=== PATIENT | female | born 1985 | race American Indian/Alaskan Native ===

== ENCOUNTER 2019-07-09 07:51 | Outpatient (CLI) | payer OTHER | END 2019-07-09 08:56 | disposition home or self-care (01) | LOC: NST 07:51 | DX: Z34.82 Encounter for supervision of other normal pregnancy, second trimester (principal) ==

== ENCOUNTER 2019-07-24 09:48 | Outpatient (CLI) | payer OTHER | END 2019-07-24 13:02 | disposition home or self-care (01) | LOC: NST 09:48 | DX: O10.013 Pre-existing essential hypertension complicating pregnancy, third trimester (principal) ==

== ENCOUNTER 2019-08-08 07:56 | Outpatient (CLI) | payer OTHER | END 2019-08-08 08:39 | disposition home or self-care (01) | LOC: NST 07:56 | DX: Z34.83 Encounter for supervision of other normal pregnancy, third trimester (principal) ==

== ENCOUNTER 2019-09-05 12:27 | Outpatient (CLI) | payer OTHER | END 2019-09-05 13:03 | disposition home or self-care (01) | LOC: NST 12:27 | DX: Z34.83 Encounter for supervision of other normal pregnancy, third trimester (principal) ==

== ENCOUNTER 2019-09-05 13:17 | Inpatient (IN) | payer OTHER ==
[~2019-09-05] VITALS: Ht 160 cm; Wt 3.2 kg
[2019-09-15] MEDS ORDERED: LABETALOL HCL100 MG PO (13:15)
[2019-09-15] MEDS ORDERED: VALTREX1000 MG PO (13:16)
[2019-09-15] MEDS ORDERED: SYNTHROID112 MCG PO (13:16)
[2019-09-16] MEDS ORDERED: ASPIR 8181 MG PO (15:51)
[2019-09-16] MEDS ORDERED: PRENATAL + DHA1 EAC1 PO (15:52)
== END 2019-09-20 12:36 | disposition home or self-care (01) | DRG 787 ==
LOC: LDR 09-15 12:29 → O/R 09-16 15:50 → OB/GYN 09-16 16:38
PROVIDERS: ADMIT Obstetrics & Gynecology; ATTEND Obstetrics & Gynecology
PROC: 3E0P7VZ Introduction of Hormone into Female Reproductive, Via Natural or Artificial Opening (ICD-10-PCS; 2019-09-16)
PROC: 4A1HXFZ Monitoring of Products of Conception, Cardiac Rhythm, External Approach (ICD-10-PCS; 2019-09-16)
PROC: 10D00Z1 Extraction of Products of Conception, Low, Open Approach (ICD-10-PCS; principal; 2019-09-16 15:00)
DX: O61.0 Failed medical induction of labor (principal); O10.92 Unspecified pre-existing hypertension complicating childbirth; O99.824 Streptococcus B carrier state complicating childbirth; O76 Abnormality in fetal heart rate and rhythm complicating labor and delivery; O69.81X0 Labor and delivery complicated by cord around neck, without compression, not applicable or unspecified; O99.284 Endocrine, nutritional and metabolic diseases complicating childbirth; Z3A.38 38 weeks gestation of pregnancy; Z37.0 Single live birth

== ENCOUNTER 2019-09-12 14:11 | Outpatient (CLI) | payer OTHER | END 2019-09-12 16:33 | disposition home or self-care (01) | LOC: NST 14:11 | PROVIDERS: ATTEND Obstetrics & Gynecology | DX: Z34.83 Encounter for supervision of other normal pregnancy, third trimester (principal) ==

== ENCOUNTER 2019-09-15 11:24 | Outpatient (CLI) | payer OTHER ==
[2019-09-15] MEDS ORDERED: LABETALOL HCL100 MG PO (13:15)
[2019-09-15] MEDS ORDERED: VALTREX1000 MG PO (13:16)
[2019-09-15] MEDS ORDERED: SYNTHROID112 MCG PO (13:16)
[2019-09-16] MEDS ORDERED: ASPIR 8181 MG PO (15:51)
[2019-09-16] MEDS ORDERED: PRENATAL + DHA1 EAC1 PO (15:52)
== END 2019-09-15 13:09 | disposition still patient (30) ==
LOC: NST 11:24
PROVIDERS: ATTEND Obstetrics & Gynecology
DX: Z34.83 Encounter for supervision of other normal pregnancy, third trimester (principal)

== ENCOUNTER 2024-12-16 14:28 | Outpatient (CLI) | payer OTHER ==
[~2024-12-16 14:28] MED LIST: ASPIR 8181 MG PO; LABETALOL HCL100 MG PO; PRENATAL + DHA1 EAC1 PO; SYNTHROID112 MCG PO; VALTREX1000 MG PO
== END 2024-12-16 15:52 | disposition home or self-care (01) ==
LOC: NST 14:28
PROVIDERS: ATTEND Obstetrics & Gynecology
DX: Z34.83 Encounter for supervision of other normal pregnancy, third trimester (principal)

== ENCOUNTER 2024-12-22 07:30 | Inpatient (IN) | payer OTHER ==
[~2024-12-22] VITALS: Ht 160 cm; Wt 3.2 kg
[2024-12-22] MEDS ORDERED: NIFEDIPINE ER30 MG PO (08:54)
[2024-12-22 09:28] LABS: BASO % 0.3 % (0.1-1.2); EOS # 0.06 (0.04-0.54); EOS % 0.6 % (0.7-7.0); LYMPH # 1.66 (1.18-3.74); LYMPH % 17.0 % (19.3-53.1); MEAN PLATELET VOLUME 10.00 fl (9.4-12.4); MONO # 0.64 (0.24-0.82); MONO % 6.6 % (4.7-12.5); NEUT # 7.24 (1.56-6.13); NEUT % 74.2 % (34.0-71.1); RED CELL DISTRIBUTION WIDTH 14.0 % (11.6-14.4)
[2024-12-22 10:06] LABS: INR 0.96
[2024-12-22 10:08] LABS: ALT/SGPT 26.0 U/L (12-78); AST/SGOT 16.0 U/L (15-37); BILIRUBIN TOTAL 0.3 mg/dL (0.3-1.2); BUN CREA RATIO 16.0 (7.0-25.0); CREATININE SERUM 0.49 mg/dL (0.55-1.02); GFR 140.6; GLOBULINA 4.0 G/DL (2.4-3.5); GLUCOSE FASTING 81.0 mg/dL (65-100); OSMOLALITY SERUM 277.0 MOSM/KG (275-295)
[2024-12-24 09:28] VITALS: BP 146/78
[2024-12-24] MEDS ORDERED: ERYTHROMYCIN BASE OPHT 1GM EACH TUBE OP ONE (10:01)
[2024-12-24] MEDS ORDERED: OXYTOCIN 10 UNITS/ML VIAL ONE ×2 (10:01→15:51)
[2024-12-24] MEDS ORDERED: CEFAZOLIN SODIUM 1,000 MG VIAL ONE (10:30)
[2024-12-24] MEDS ORDERED: CITRIC ACID/SODIUM CITRATE 30 ML BLIST.PACK PO ONE (10:30)
[2024-12-24] MEDS ORDERED: CHLORHEXIDINE GLUCONATE 120 ML BOTTLE TOP ONE (12:08)
[2024-12-24] MEDS ORDERED: MORPHINE SULFATE 4 MG/ML VIAL IV ONE (12:50)
[2024-12-24] MEDS ORDERED: LABETALOL HCL 200 MG TABLET PO SCH (13:05)
[2024-12-24] MEDS ORDERED: MORPHINE SULFATE 4 MG/ML CARTRIDGE IV PRN (13:45)
[2024-12-24] MEDS ORDERED: OXYTOCIN 1,000 ML IV SCH (13:45)
[2024-12-24 18:59] VITALS: BP 140/80
[2024-12-24] MEDS ORDERED: KETOROLAC TROMETHAMINE 30 MG VIAL IV SCH (21:30)
[2024-12-24] MEDS ORDERED: KETOROLAC TROMETHAMINE 60 MG VIAL IM SCH (21:30)
[2024-12-25 00:37] VITALS: BP 140/70
[2024-12-25 04:00] VITALS: BP 134/76
[2024-12-25 08:55] VITALS: BP 131/75
[2024-12-25 10:34] LABS: BASO % 0.3 % (0.1-1.2); EOS # 0.08 (0.04-0.54); EOS % 0.6 % (0.7-7.0); LYMPH # 1.02 (1.18-3.74); LYMPH % 8.1 % (19.3-53.1); MEAN PLATELET VOLUME 10.30 fl (9.4-12.4); MONO # 1.05 (0.24-0.82); MONO % 8.3 % (4.7-12.5); NEUT # 10.34 (1.56-6.13); NEUT % 82.0 % (34.0-71.1); RED CELL DISTRIBUTION WIDTH 14.1 % (11.6-14.4)
[2024-12-25 17:34] VITALS: BP 138/89
[2024-12-26] MEDS ORDERED: OxyCODONE HCL 5 MG TABLET (ROXICODONE) PO PRN (06:00)
[2024-12-26 08:00] VITALS: BP 145/85
== END 2024-12-26 14:18 | disposition home or self-care (01) | DRG 785 ==
LOC: EDBD 12-24 07:30 → OB/GYN 12-24 07:30 → O/R 12-24 09:00 → OB/GYN 12-24 15:12
PROVIDERS: Obstetrics & Gynecology; ADMIT Obstetrics & Gynecology; ATTEND Obstetrics & Gynecology
PROC: 0UB70ZZ Excision of Bilateral Fallopian Tubes, Open Approach (ICD-10-PCS; 2024-12-24)
PROC: 4A1HXCZ Monitoring of Products of Conception, Cardiac Rate, External Approach (ICD-10-PCS; 2024-12-24)
PROC: 10D00Z1 Extraction of Products of Conception, Low, Open Approach (ICD-10-PCS; principal; 2024-12-24 12:45)
DX: O34.211 Maternal care for low transverse scar from previous cesarean delivery (principal); O99.824 Streptococcus B carrier state complicating childbirth; Z3A.38 38 weeks gestation of pregnancy; Z37.0 Single live birth; Z30.2 Encounter for sterilization